=== PATIENT | female | born 1995 | race American Indian/Alaskan Native ===

== ENCOUNTER 2016-12-14 18:01 | Emergency (ER) | payer SELFPAY ==
--- NOTE | 2016-12-14 19:14 | ED PDOC ---
Arrival/HPI - General Chief Complaint: Female Genitourinary Time Seen by Provider: 12/14/16 18:27 Historian: Patient - History of Present Illness Narrative History of Present Illness (Text): 12/14/16 19:10 A 21 year old female, who denies any significant past medical history, presents to the emergency department for complaints of clear vaginal discharge, which began 2 days ago. The patient reports she had a pap smear 3 months ago and results are normal. She reports that her LMP was on 10/23/16, and she usually has it monthly and on time, so she is approximately 22 days late. She denies any fever, nausea, vomiting, back pain, dysuria, hemturia, chest pain, shortness of breath, or any other symptoms at this time. LMP: 10/23/16 P:0 A:1 Time/Duration: < week (x2 days ) Symptom Onset: Sudden Symptom Course: Unchanged Quality: Other Activities at Onset: Rest, Light Context: Home Past Medical History - Provider Review Nursing Documentation Reviewed: Yes - Infectious Disease Hx of Infectious Diseases: None - Reproductive Menopause: No - Psychiatric Hx Substance Use: No - Surgical History Hx Cholecystectomy: Yes - Anesthesia Hx Anesthesia: No Family/Social History - Physician Review Nursing Documentation Reviewed: Yes Family/Social History: No Known Family HX Smoking Status: Unknown If Ever Smoked Hx Alcohol Use: No Hx Substance Use: No Allergies/Home Meds Allergies/Adverse Reactions: Allergies seasonal Allergy (Uncoded 12/14/16 18:23) CONGESTION Home Medications: Home Meds Medication Instructions Recorded Confirmed Albuterol HFA [Ventolin HFA 90 0.09 mg IH PRN PRN 12/14/16 12/14/16 mcg/actuation (8 g)] Review of Systems - Review of Systems Constitutional: absent: Fevers Gastrointestinal: absent: Abdominal Pain, Nausea, Vomiting Genitourinary Female: Vaginal Discharge (clear fluid discharge x2 days). absent : Dysuria, Hematuria Physical Exam Vital Signs Reviewed: Yes Vital Signs Temp Pulse Resp BP Pulse Ox 12/14/16 20:08 98.5 F 74 20 110/66 100 12/14/16 18:18 98.8 F 72 16 115/69 100 Temperature: Afebrile Blood Pressure: Normal Pulse: Regular Respiratory Rate: Normal Appearance: Positive for: Well-Appearing, Non-Toxic, Comfortable Pain Distress: None Mental Status: Positive for: Alert and Oriented X 3 - Systems Exam Head: Present: Atraumatic, Normocephalic Abdomen: Present: Normal Bowel Sounds. No: Tenderness, Distention, Peritoneal Signs Genitourinary/Pelvic Exam: Present: Normal External Genitalia, Vaginal Discharge (mild clear vaginal discharge), Vaginal Lesions (small yellowish lesion of the cervix about 9 o'clock position from cervical os; non-tender to palpation.), Other (Kim Flores was present to excavating contractor during vaginal exam. ) . No: Vaginal Bleeding, Cervical Motion Tendernes, Odor Lower Extremity: Present: Normal Inspection. No: Edema Medical Decision Making ED Course and Treatment: 12/14/16 19:17 Impression: A 21 year old female with vaginal discharge. Differential Diagnosis included but are not limited to: physiologic discharge vs STD vs hormonal changes Plan: -- test -- Urinalysis -- Reassess and disposition Prior Visits: Notes and results from previous visits were reviewed. Patient was last seen in the emergency department on Progress Notes: 12/14/16 20:15 Patient's test is negative. On exam, there is a lesion on the cervix , which will require further assessment by gynecology, and this has been conveyed to the patient. GC/chlamydia sent. Urine shows no infection. Will give abx and treat for GC/chlamydia, and trichomonas and BV at this time and have her f/u gynecology. - Lab Interpretations Lab Results: Lab Results 12/14/16 18:50: Urine Color Yellow, Urine Appearance Clear, Urine pH 7.0, Ur Specific [place] 1.020, Urine Protein 30 H, Urine Glucose (UA) Negative, Urine Ketones Negative, Urine Blood Negative, Urine Nitrate Negative, Urine Bilirubin Negative, Urine Urobilinogen 1.0 H, Ur Leukocyte Esterase Negative, Urine RBC 0 - 2, Urine WBC 0 - 2, Ur Epithelial Cells 3 - 4, Urine Bacteria Rare - Medication Orders Current Medication Orders: Discontinued Medications Azithromycin (Zithromax) 1,000 mg PO STAT STA PRN Reason: Protocol Stop: 12/14/16 19:43 Last Admin: 12/14/16 19:51 Dose: 1,000 mg Ceftriaxone Sodium (Rocephin) 250 mg IM STAT STA PRN Reason: Protocol Stop: 12/14/16 19:43 Last Admin: 08/12/17 20:02 Dose: 250 mg - PA / RELEASE ENGINEER / Resident Statement MD/DO has reviewed & agrees with the documentation as recorded. - Scribe Statement The provider has reviewed the documentation as recorded by the [place] Kim Flores Provider Scribe Attestation: All medical record entries made by the Scribe were at my direction and personally dictated by me. I have reviewed the chart and agree that the record accurately reflects my personal performance of the history, physical exam, medical decision making, and the department course for this patient. I have also personally directed, reviewed, and agree with the discharge instructions and disposition. Disposition/Present on Arrival - Present on Arrival Any Indicators Present on Arrival: No History of DVT/PE: No History of Uncontrolled Diabetes: No Urinary Catheter: No History of Decub. Ulcer: No History Surgical Site Infection Following: None - Disposition Have Diagnosis and Disposition been Completed?: Yes Diagnosis: Vaginal discharge Disposition: HOME/ ROUTINE Disposition Time: 20:10 Patient Plan: Discharge Condition: GOOD Discharge Instructions (ExitCare): Vaginal Discharge (ED) Additional Instructions: Take the metronidazole as prescribed. Avoid any alcohol use at all while taking it. Make sure you follow up with your hammer mill operator or the gynecology clinic ([phone]; call for appointment). Return to the emergency department if any new concerning symptoms. Prescriptions: metroNIDAZOLE [Flagyl] 1 tab PO BID #14 tab Referrals: [facility] [Outside] - Follow up with primary [facility] [Outside] - Follow up with primary Forms: [employer] (Sami)
[2016-12-14 19:30] LABS: URINE BILIRUBIN NEGATIVE (NEGATIVE); URINE BLOOD NEGATIVE (NEGATIVE); URINE GLUCOSE (UA) NEGATIVE (NEGATIVE); URINE LEUKOCYTE ESTERASE NEGATIVE Leu/uL (NEGATIVE); URINE NITRATE NEGATIVE (NEGATIVE); URINE PROTEIN 30 mg/dL (<30 mg/dL)
[2016-12-14] MEDS ORDERED: cefTRIAXone (Rocephin) 250 mg Inj IM STA (19:42)
[2016-12-14 19:46] LABS: URINE APPEARANCE CLEAR (CLEAR); URINE COLOR YELLOW (YELLOW)
[2016-12-14 19:47] LABS: URINE BACTERIA RARE (NEG); URINE RBC 0 - 2 /hpf (0-2); URINE WBC 0 - 2 /hpf (0-6)
[2016-12-14 20:08] VITALS: PULSE 74
[2016-12-14 20:36] VITALS: BP 124/75; RESP 19; TEMP 98; O2SAT 99
== END 2016-12-14 20:36 | disposition home or self-care (01) ==
LOC: ED 18:01
DX: N89.8 Other specified noninflammatory disorders of vagina (principal)
CPT/HCPCS: 81001; 87086; 87491; 87591; 96372; 99283; J0696